=== PATIENT | male | born 1970 | race Caucasian/White ===

== ENCOUNTER 2018-11-29 16:20 | Emergency (ER) | payer MEDICAID, SELFPAY ==
[2018-11-29 16:21] VITALS: BP 113/78; PULSE 94; RESP 16; TEMP 35.6; O2SAT 96; BMI 30.2
--- NOTE | 2018-11-29 16:42 | RAD_ITS ---
STUDY: X-RAY CHEST REASON FOR EXAM: Male, 48 years old. Chest pain. TECHNIQUE: PA and lateral views of the chest. COMPARISON: None. FINDINGS: The lungs are clear and expanded. There is no demonstrated pleural abnormality. Normal size heart. Normal mediastinum and radha. Normal visualized pulmonary arteries. Normal visualized aortic arch and descending thoracic aorta. Normal visualized thoracic spine. Normal visualized ribs, clavicles, and shoulders. There is no demonstrated abnormality of the visualized soft tissue structures of the upper abdomen. RAD/Chest PA and Lateral IMPRESSION: No acute cardiopulmonary disease. Electronically Signed: Daniel Sanchez DO at 17:30 EDT Tel [phone], Service support ,
--- NOTE | 2018-11-29 16:42 | EKG12_ITS ---
Test Reason : CP Blood Pressure : / mmHG Vent. Rate : 080 BPM Atrial Rate : 080 BPM P-R Int : 140 ms QRS Dur : 094 ms QT Int : 382 ms P-R-T Axes : 044 022 058 degrees QTc Int : 440 ms Normal sinus rhythm Normal ECG Confirmed by LAKHWINDER THORNTON, CATA ([id number]), sports editor ROXANA FUENTES ([id number]) on 12/03/2018 11:28:33 AM Referred By: JITENDRA Confirmed By:CATA KEANE MD
[2018-11-29] MEDS: Morphine 4 MG/ML Syringe IV (16:56)
[2018-11-29 17:17] LABS: Absolute Lymphocyte Count 2.61 X10^3/ul (0.83-4.51); Absolute Neutrophil Count 4.5 X10^3/uL (2.0-7.7); Basophil# 0.04 X10^3/uL; Basophil% 0.5 % (0-1); Eosinophil# 0.26 X10^3/uL; Eosinophils% 3.2 % (0-5); Hematocrit 50.7 % (40-54); Hemoglobin 17.4 g/dl (13.0-16.5); Lymphocyte # 2.61 X10^3/ul (4.0); Lymphocyte % 32.5 % (19-41); Mean Corp Hgb Conc 34.3 g/gl (32-36); Mean Corpuscular Hgb 31.7 pg (27.0-32.0); Mean Corpuscular Volume 92.3 fL (80-94); Mean Platelet Vol. 9.6 fl (6.2-12.0); Monocyte# 0.63 X10^3/uL; Monocyte% 7.8 % (0-10); Neutrophil # 4.47 X10^3/uL (2.7-7.7); Neutrophil % 55.8 % (47-70); Platelet Count 254 K/mm3 (150-450); RBC Distribution Width CV 12.8 % (11.6-14.6); RBC Distribution Width SD 43.2 fl (35.1-43.9); Red Blood Count 5.49 M/mm3 (4.6-6.2)
[2018-11-29 17:19] LABS: POSITIVE COUNT NO; POSITIVE DIFFERENTIAL NO; POSITIVE MORPHOLOGY NO
[2018-11-29 17:33] LABS: AST(SGOT) 28 U/L (15-37); Alanine Aminotransfer ALT/SGPT 49 U/L (16-61); Albumin, Serum 3.8 g/dL (3.2-5.0); Alkaline Phosphatase 93 U/L (45-117); Anion Gap 4 (5-15); BUN 13 mg/dL (7-18); Calcium,Total 8.9 mg/dL (8.5-10.1); Chloride 105 mmol/L (98-107); Creatinine, Serum 1.08 mg/dL (0.70-1.30); EST Glomerular Filtration Rate 78 mL/min (>60); Est Glom Filt Rate - Afr Amer 94 mL/min (>60); Estimated Creatinine Clearance 91.03 ml/min; Globulin 3.9 g/dL (2.2-4.2); Glucose 85 mg/dL (74-106); Potassium 4.5 mmol/L (3.5-5.1); Protein, Total 7.7 g/dL (6.4-8.2); Sodium Level 138 mmol/L (136-145)
--- NOTE | 2018-11-29 18:11 | ED.VISSUMM ---
- ER Visit Summary Date of Service: 11/29/18 Chief Complaint: Chest tightness, cough History of Present Illness: The patient is a 48 M who is a smoker with history of recurrent pleurisy presents with the same symptoms. He states over the past week, he is had pain along his lower ribs. He states is worse when he coughs. He denies any fevers or chills. He has no history of pulmonary embolus. He states it does not hurt to take a deep breath. It hurts when he puts pressure on his ribs when he twists. He denies any fevers or chills. He is not on any daily medications. Physical Examination: Vital signs reviewed General: Well-nourished, well-developed Head: Normocephalic, atraumatic Eyes: Pupils equal and reactive, extraocular muscles intact Neck, supple, no lymphadenopathy Heart: Regular rate and rhythm Respiratory: No distress, clear bilaterally Abdomen: Soft, nontender, nondistended, no peritoneal signs Back: Nontender Extremities: Nontender, no edema, no cords Skin: Normal color no rash Neuro: Alert and oriented, no focal or lateralizing deficits Test Results: [] Emergency Department Course and Treatment: EKG was obtained the patient arrival. It was unremarkable. There is no acute ischemic change. Screening labs were obtained. Cardiac enzymes are normal. Patient is PE RC negative. His chest x-ray does show chronic change. I do feel that this is more likely an inflammatory process. The patient declined any nebulized breathing treatments. He states it does make his pain worse. He will be started on prednisone. He was given a short course of analgesics. He was counseled on concerning symptoms and reasons to return. He will be discharged home. Treatment Plan: [] Disposition: Discharge Impression: 1. Pleurisy This note was generated with [employer] dictation software. It may contain incorrect words, spelling, and punctuation that were not noted in review of the chart prior to signing ED Disposition - Plan for ED Patient: Disposition: Home or Assisted Living Instructions: ED Chest Pain Pleurisy Prescriptions: Hydrocodone Bitart/Apap 5-325 [Zortman 5MG-325MG] 1 tab PO Q6H PRN PRN 3 Days #10 tab PRN Reason: Pain RX: Prednisone 10 mg PO UD #33 tab Referrals: Nina Wilson NP-C [Primary Care Provider] -
[2018-11-29 18:32] VITALS: BP 119/82; PULSE 66; RESP 16; O2SAT 95
[2018-11-29 18:33] VITALS: BP 119/82; PULSE 66; RESP 16; O2SAT 95
== END 2018-11-29 18:33 | disposition home or self-care (01) ==
PROVIDERS: Emergency Provider Emergency Medicine; Family Provider Family Medicine; PCP Nurse Practitioner Family
DX: R09.1 Pleurisy (principal); J44.9 Chronic obstructive pulmonary disease, unspecified; F17.200 Nicotine dependence, unspecified, uncomplicated
CPT/HCPCS: 71046; 80053; 84484; 85025; 93005; 96361; 96374; 99285; J7030; J7040; A4216